=== PATIENT | male | born 2000 | race Hispanic/Latino ===

== ENCOUNTER 2022-08-28 05:03 | Emergency (ER) | payer SELFPAY | END 2022-08-28 07:00 | disposition home or self-care (01) | LOC: CSHERS 05:03 | DX: F10.129 Alcohol abuse with intoxication, unspecified (principal); Y90.9 Presence of alcohol in blood, level not specified | CPT/HCPCS: 99284 ==

== ENCOUNTER 2023-12-29 06:08 | Emergency (ER) | payer SELFPAY ==
[2023-12-29] MEDS ORDERED: Ibuprofen 200 MG TAB ONE (06:30)
== END 2023-12-29 06:40 | disposition home or self-care (01) ==
LOC: CSHERS 06:08
DX: S16.1XXA Strain of muscle, fascia and tendon at neck level, initial encounter (principal); R03.0 Elevated blood-pressure reading, without diagnosis of hypertension; X58.XXXA Exposure to other specified factors, initial encounter
CPT/HCPCS: 99283